=== PATIENT | female | born 1960 | race Caucasian/White ===

== ENCOUNTER 2018-12-28 09:45 | Day surgery (SDC) | payer OTHER ==
[2018-12-26 13:04] LABS: HEMATOCRIT 40.9 % (36.0-48.0); HEMOGLOBIN 13.5 g/dL (12-16); MCH 28.8 pg (26.0-34.0); MCV 87.4 fL (80.0-100.0); MEAN PLATELET VOLUME 9.3 fL (7.4-10.4); RBC 4.68 10x6/uL (4.00-5.40); RDW 12.9 % (11.5-14.5); WBC 9.5 10x3/uL (4.8-10.8)
[~2018-12-28] VITALS: Ht 160 cm; Wt 77.1 kg
--- NOTE | ~2018-12-28 | OP ---
PATIENT NAME: MARIELA SALAZAR MEDICAL RECORD: [id number] :58 LOCATION:D.FORMERLY [facility] [place] ADMISSION DATE: SURGEON: LINA BACK DATE OF OPERATION: 12/28/2018 SURGEON: Lina Back DPM PREOPERATIVE DIAGNOSES: 1. Hallux abductovalgus deformity, left foot. 2. Plantar fibroma, left foot. POSTOPERATIVE DIAGNOSES: 1. Hallux abductovalgus deformity, left foot. 2. Plantar fibroma, left foot. PROCEDURE: 1. Shan bunionectomy, left foot. 2. Excision of plantar fibroma, left foot. ANESTHESIA: Local with monitored anesthesia care. HEMOSTASIS: Pneumatic ankle tourniquet inflated to 250 mmHg. ESTIMATED BLOOD LOSS: Minimal. MATERIALS: 3-0 Vicryl, 4-0 nylon. INJECTABLES: 10 cc of 0.5% bupivacaine plain. The patient has longstanding history of pain associated with both a bunion deformity and a large plantar fibroma on the bottom of the left foot. I have discussed with her the proposed procedures. Risks and benefits were discussed. Complications were reviewed. All questions were answered. She was appropriately consented for the above-mentioned procedures. The patient was brought in the operating room and placed on the operating table in supine position. A timeout was called with Dr. Back, who identified the patient, the surgical site, and the surgery to be performed. Once appropriate anesthesia was obtained, the foot was prepped and draped in the usual aseptic manner. The pneumatic ankle tourniquet was inflated to 250 mmHg on the well-padded left ankle. PROCEDURE #1: Shan bunionectomy, left foot. Attention was directed to the dorsal aspect of the first metatarsophalangeal joint where a 6 cm linear incision was made just medial to the extensor hallucis longus tendon. This incision was carried deep to soft tissue with care being taken to retract all vital neurovascular structures. All bleeders were cauterized along the way. The periosteum was then reflected from the head of the first metatarsal and the base of the proximal phalanx, thus exposing the hypertrophied medial eminence of the first metatarsal head. Utilizing a sagittal saw, the hypertrophied medial eminence was sharply resected. Next, utilizing a sagittal saw, a V-shaped osteotomy was created in the head of the first metatarsal. This was a through and through osteotomy with the apex oriented distally. The capital fragment was OPERATIVE REPORT [id number] MARIELA SALAZAR translocated laterally and impacted upon the first metatarsal shaft. Next, utilizing manufacture's recommended technique, one 2.5-mm screw was placed across the osteotomy. All remaining overhanging bone from the medial aspect of the first metatarsal shaft was removed with the sagittal saw. All sharp bone edges were then smoothed with a rasp. The surgical site was then irrigated with copious amounts of normal sterile saline via bulb syringe. The periosteum was reapproximated and coapted using 3-0 Vicryl. The subq was reapproximated and coapted using 4-0 Vicryl and the skin was reapproximated and coapted using 4-0 nylon. PROCEDURE #2: Excision of plantar fibroma, left foot. Attention was directed to the plantar surface of the left foot where 4 discrete plantar fibromas were identified. One was within the medial arch of the plantar left foot and one cluster of 3 was more laterally located. A lazy S-incision was placed directly over the larger medial mass. This incision was carried deep to soft tissue with care being taken to retract all vital neurovascular structures. All bleeders were cauterized along the way. The plantar adipose tissue was dissected and the plantar fibroma was identified. Dissection was carried out to clean margins and then a fresh 15-blade was then utilized to excise the plantar fibroma in toto with clean margins. The surgical site was investigated for any remaining pathological tissue and none was noted. Attention was then directed further laterally to a small cluster of 3 plantar fibromas more laterally located. A lazy S-incision was made over this area. This incision was carried deep to soft tissue with care being taken to retract all vital neurovascular structures. All bleeders were cauterized along the way. The plantar fascia was identified with 3 discrete lesions noted within the plantar fascia. All 3 lesions were excised with healthy margin. This surgical site was then investigated for any remaining pathological tissue and none was noted. Both surgical sites were then irrigated with copious amounts of normal sterile saline via bulb syringe. The subq was reapproximated and coapted using 3-0 Vicryl. The skin was reapproximated and coapted using 4-0 nylon. A dressing consisting of Xeroform, 4 x 4's, Kerlix, and Dinh bandage was applied to the left foot. The pneumatic ankle tourniquet was deflated and capillary refill time was immediate to all digits of the involved foot. The patient was discharged home with instructions to ice and elevate the left foot. She has my cell phone number for any afterhours difficulties. She was dispensed a boot to further help offload the foot. There were no complications with this procedure and we will follow up with her in 1 week. TRANSINT:[id number] Voice Confirmation ID: [id number] DOCUMENT ID: [id number] LINA BACK CC: [id number] DICTATION DATE: 12/29/18 1227 DIP LUBE OPERATOR: 12/29/18 1316 [facility] 12/28/18 [facility] [address] [place] [address]
[~2018-12-28 09:45] MED LIST: ADDERALL 10 MG10 MG PO; AMBIEN CR 6.26.25 MG PO; LIDODERM 5 %1 PATCH TRANSDERM; LISINOPRIL10 MG PO; NEURONTIN 300300 MG PO; NEXIUM40 MG PO; PHENERGAN25 M1 PO; PRISTIQ50 MG PO; ZOLPIDEM 12.5 MG PO
[2018-12-28 10:15] VITALS: BP 127/95; Ht 160 cm; Wt 77.1 kg
--- NOTE | 2018-12-28 14:31 | NUR ---
1329-REC'D FROM SURGERY,DROWSY,EASILY AROUSED. DENIES PAIN. BOOT AND DRESSING TO LLE CDI. CAP REFILL WNL,NOT ABLE TO MOVE DIGITS. BLOCK ADMINISTERED IN SURGERY. AT BEDSIDE,CL IN EASY REACH
--- NOTE | 2018-12-28 14:32 | NUR ---
1415-DISCHARGE CRITERIA MET. DRESSING AND BOOT INTACT AND CDI TO LLE. CAP REFILL WNL,NOT ABLE TO MOVE PHALANGES DUE TO POPLITEAL BLOCK IN SURGERY. VSS. REVIEWED DISCHARGE INSTRUCTIONS WITH PT AND .VERBALIZED UNDERSTANDING WITHOUT QUESTIONS OR CONCERNS. ESCORTED OUT VIA W/C WITH DRIVING HOME
== END 2018-12-28 14:15 | disposition home or self-care (01) ==
LOC: D.OPS 09:45 → D.PAN 12:00 → D.OPS 14:15
PROVIDERS: Anesthesiology; ATTEND Podiatrist
DX: M20.12 Hallux valgus (acquired), left foot (principal); D17.39 Benign lipomatous neoplasm of skin and subcutaneous tissue of other sites